=== PATIENT | male | born 1965 | race Caucasian/White ===

== ENCOUNTER 2021-06-30 05:45 | Inpatient (IN) ==
[2021-06-30] MEDS ORDERED: LIDOCAINE 2% 5 ML VIAL ONE (06:16)
[2021-06-30] MEDS ORDERED: fentaNYL 100 MCG/2 ML VIAL ONE ×2 (06:16→07:54)
[2021-06-30] MEDS ORDERED: MIDAZOLAM 2 MG/2 ML VIAL ONE (06:16)
[2021-06-30] MEDS ORDERED: propofoL 200 MG/20 ML VIAL IV ONE (06:16)
[2021-06-30] MEDS ORDERED: ROCURONIUM 50 MG/5 ML VIAL IV ONE (06:16)
[2021-06-30] MEDS ORDERED: VANCOMYCIN 1,000 MG VIAL ONE (06:18)
[2021-06-30] MEDS ORDERED: CLINDAMYCIN INJ 900 MG/50 ML PREMIX IV ONE (06:18)
[2021-06-30] MEDS ORDERED: FAMOTIDINE 20 MG TABLET PO ONE (06:28)
[2021-06-30] MEDS ORDERED: ACETAMINOPHEN 500 MG TABLET PO ONE (06:28)
[2021-06-30] MEDS ORDERED: GABAPENTIN 400 MG CAPSULE PO ONE (06:28)
[2021-06-30] MEDS ORDERED: LACTATED RINGERS 1,000 ML IV SCH (06:30)
[2021-06-30] MEDS ORDERED: LIDOCAINE 1% 5 ML VIAL ONE (06:39)
[2021-06-30] MEDS ORDERED: ROPIVACAINE 0.5% 30 ML VIAL ONE (06:39)
[2021-06-30] MEDS ORDERED: diphenhydrAMINE CAP 25 MG CAPSULE PO PRN (07:15)
[2021-06-30] MEDS ORDERED: MAGNESIUM HYDROXIDE SUSP 30 ML UDCUP PO PRN (07:15)
[2021-06-30] MEDS ORDERED: ONDANSETRON 4 MG/2 ML VIAL IV PRN ×2 (07:15→09:23)
[2021-06-30] MEDS ORDERED: LACTULOSE 20 GM/30 ML UDCUP PO PRN (07:15)
[2021-06-30] MEDS ORDERED: TEMAZEPAM 7.5 MG CAPSULE PO PRN (07:15)
[2021-06-30] MEDS ORDERED: MORPHINE 2 MG/1 ML SYRINGE IV PRN (07:15)
[2021-06-30] MEDS ORDERED: BISACODYL 10 MG SUPP RECTAL PRN (07:15)
[2021-06-30] MEDS ORDERED: PROMETHAZINE 25 MG/1 ML VIAL IM PRN (07:15)
[2021-06-30] MEDS ORDERED: IBUPROFEN 800 MG TABLET PO PRN (07:18)
[2021-06-30] MEDS ORDERED: ePHEDrine 50 MG/ML VIAL ONE (07:32)
[2021-06-30] MEDS ORDERED: TRANEXAMIC ACID 1,000 MG/10 ML VIAL ONE (07:33)
[2021-06-30] MEDS ORDERED: DEXAMETHASONE 4 MG/1 ML VIAL ONE (07:35)
[2021-06-30] MEDS ORDERED: LACTATED RINGERS 1,000 ML IV ONE (07:35)
[2021-06-30] MEDS ORDERED: ONDANSETRON 4 MG/2 ML VIAL ONE (07:35)
[2021-06-30] MEDS ORDERED: SEVOFLURANE 1 UNIT/15 MINUTE INH ONE (07:35)
[2021-06-30] MEDS ORDERED: SODIUM CHLORIDE 0.9% 100 ML IV ONE (07:35)
[2021-06-30] MEDS ORDERED: NEOSTIGMINE 10 MG/10 ML VIAL ONE (08:05)
[2021-06-30 09:14] LABS: Bacteria,Urine Occasional /HPF (Few); Bilirubin,Urine Negative (Negative); Blood, Urine Negative (Negative); Glucose,Urine (UA) Negative (Negative); Ketones,Urine Negative (Negative); Mucus,Urine Occasional /LPF (Occasional); Nitrite,Urine Negative (Negative); Protein,Urine Negative; RBC,Urine 3 /HPF (0-4); Urine Appearance CLEAR (Clear); Urine Color Yellow (Yellow); Urine Urobilinogen < 2.0 EU/DL (<2.0)
[2021-06-30] MEDS: HYDROmorphone 2 MG/1 ML VIAL IV PRN ×4 (09:29→09:51)
[2021-06-30] MEDS: ROSUVASTATIN 10 MG TABLET PO SCH (12:04)
[2021-06-30] MEDS: amLODIPine 5 MG TABLET PO SCH (12:05)
[2021-06-30 13:38] LABS: Basophils % 0.2 % (0.0-0.8); Eosinophils % 0.1 % (0.00-10.9); Hematocrit 40.9 VOL% (42.0-52.0); Hemoglobin 13.7 GM/DL (14.0-18.0); Immature Granulocytes % 0.4 %; Immature Granulocytes Absolute 0.04 #; Lymphocytes # 0.5 10*3/uL (1.4-4.0); Lymphocytes % 4.4 % (21.2-54.2); Mean Corpuscular HGB Conc 33.5 GM/DL (32-36); Mean Corpuscular Volume 82.8 FL (87-102); Mean Platelet Volume 9.9 FL (9.6-12.0); Monocytes % 3.4 % (1.7-12.7); Neutrophils % 91.5 % (38.7-73.9); Platelet Count 200 T/CUMM (130-400); Red Blood Count 4.94 MC/CUMM (3.8-5.5); Red Cell Distribution Width 13.1 % (9.3-17.3); White Blood Count 11.2 T/CUMM (4-12)
[2021-06-30 13:52] LABS: Calcium 9.1 MG/DL (8.5-10.1); Potassium 4.2 MMOL/L (3.5-5.1)
[2021-06-30 14:37] LABS: Hypochromia Slight; Lymphocytes 5 % (20-55); Segmented Neutrophils 91 % (50-85); Total Cells Counted 100
[2021-06-30 14:38] LABS: Microcytosis Slight; Platelet Estimate Normal
[2021-06-30] MEDS: ACETAMINOPHEN 500 MG TABLET PO SCH ×2 (14:38→17:34)
[2021-06-30 14:39] LABS: Stomatocytes Slight
[2021-06-30] MEDS: CLINDAMYCIN INJ 900 MG/50 ML PREMIX IV SCH (17:33)
[2021-06-30] MEDS: DOCUSATE SODIUM 100 MG CAPSULE PO SCH (20:35)
[2021-07-01] MEDS: ACETAMINOPHEN 500 MG TABLET PO SCH ×2 (00:35→05:44)
[2021-07-01] MEDS: CLINDAMYCIN INJ 900 MG/50 ML PREMIX IV SCH (00:35)
[2021-07-01 05:23] LABS: Basophils % 0.2 % (0.0-0.8); Hematocrit 38.4 VOL% (42.0-52.0); Immature Granulocytes % 0.5 %; Immature Granulocytes Absolute 0.05 #; Lymphocytes # 1.3 10*3/uL (1.4-4.0); Lymphocytes % 11.8 % (21.2-54.2); Mean Corpuscular HGB Conc 33.9 GM/DL (32-36); Mean Corpuscular Volume 83.1 FL (87-102); Mean Platelet Volume 10.4 FL (9.6-12.0); Neutrophils % 77.5 % (38.7-73.9); Platelet Count 212 T/CUMM (130-400); Red Blood Count 4.62 MC/CUMM (3.8-5.5); Red Cell Distribution Width 13.1 % (9.3-17.3)
[2021-07-01] MEDS: FONDAPARINUX 2.5 MG/0.5 ML SYRINGE SUBCUT SCH (05:44)
[2021-07-01] MEDS: ROSUVASTATIN 10 MG TABLET PO SCH (08:21)
[2021-07-01] MEDS: DOCUSATE SODIUM 100 MG CAPSULE PO SCH ×2 (08:22→20:45)
[2021-07-01] MEDS: SERTRALINE 50 MG TABLET PO SCH (08:22)
[2021-07-01] MEDS: amLODIPine 5 MG TABLET PO SCH (08:22)
[2021-07-02 05:11] LABS: Calcium 8.5 MG/DL (8.5-10.1); Osmolality,Calculated 277.7 MOS/KG (273-304)
[2021-07-02] MEDS: FONDAPARINUX 2.5 MG/0.5 ML SYRINGE SUBCUT SCH (05:12)
[2021-07-02 07:33] VITALS: BP 117/68
[2021-07-02] MEDS: DOCUSATE SODIUM 100 MG CAPSULE PO SCH ×2 (07:53→09:44)
[2021-07-02] MEDS: ROSUVASTATIN 10 MG TABLET PO SCH ×2 (07:53→09:44)
[2021-07-02] MEDS: amLODIPine 5 MG TABLET PO SCH ×2 (07:54→09:45)
[2021-07-02] MEDS: SERTRALINE 50 MG TABLET PO SCH ×2 (07:54→09:45)
== END 2021-07-02 10:08 | disposition home health service (06) | DRG 470 ==
LOC: N.SDSINP 05:45 → N.3E 10:10
PROVIDERS: ADMIT Orthopaedic Surgery; ATTEND Orthopaedic Surgery